=== PATIENT | female | born 1980 | race Caucasian/White ===

== ENCOUNTER 2016-07-25 01:33 | Emergency (ER) | payer SELFPAY ==
[~2016-07-25] VITALS: Ht 170.2 cm; Wt 65.5 kg
[2016-07-25] MEDS ORDERED: AMLO5TAB2 PO (02:04)
[2016-07-25] MEDS ORDERED: AMLODIPINE 5 MG TABLET PO ONE (02:30)
[2016-07-25 03:22] VITALS: BP 167/109
== END 2016-07-25 03:20 | disposition home or self-care (01) ==
LOC: ED 02:35
DX: B30.9 Viral conjunctivitis, unspecified (principal); I10 Essential (primary) hypertension
CPT/HCPCS: 99283